=== PATIENT | male | born 1945 | race Hispanic/Latino ===

== ENCOUNTER 2017-11-16 23:47 | Inpatient (IN) | payer MEDICARE ==
[~2017-11-16 23:47] MED LIST: ACET-2247 PO; ATOR10 PO; FINA5TAB41 PO; FOLI0.8T22 PO; GLIM4TAB3 PO; LISI40TA4 PO; METF-446 PO; TAMS0.4C32 PO; TORS20TA4 PO
[2017-11-17 00:04] LABS: BASOPHILS % (AUTO) 1.1 % (0.0-5.0); EOSINOPHILS % (AUTO) 1.9 % (0.0-8.0); HEMATOCRIT 36.5 % (42-54); LYMPHOCYTES % (AUTO) 24.4 % (21.0-51.0); MEAN CORPUSCULAR HEMOGLOBIN 31.9 pg (27.0-33.0); MEAN CORPUSCULAR HGB CONC 34.4 g/dL (32.0-36.0); MEAN CORPUSCULAR VOLUME 92.9 fL (79-99); MONOCYTES % (AUTO) 6.8 % (3.0-13.0); NEUTROPHILS % (AUTO) 65.8 % (40.0-77.0); PLATELET COUNT (AUTO) 154 K/uL (130-400); RED BLOOD CELL COUNT(AUTO) 3.93 MIL/uL (4.50-6.20); RED CELL DISTRIBUTION WIDTH 14.3 % (11.0-15.5); WHITE BLOOD COUNT (AUTO) 7.2 K/uL (4.8-10.8)
[2017-11-17 00:12] LABS: CREATININE 1.6 mg/dL (0.5-1.5); POTASSIUM 4.3 mmol/L (3.5-5.1)
[2017-11-17 00:15] LABS: INR 1.01 (0.85-1.15); PARTIAL THROMBOPLASTIN TIME 23.8 SEC (26.3-35.5); PROTHROMBIN TIME 10.6 SEC (9.6-11.6)
[2017-11-17 00:26] LABS: ALBUMIN 3.7 g/dL (3.5-5.0); BILIRUBIN,TOTAL 0.2 mg/dL (0.2-1.0); TOTAL PROTEIN, SERUM 7.4 g/dL (6.0-8.3)
[2017-11-17 00:30] LABS: APPEARANCE,URINE Clear (CLEAR); BILIRUBIN,URINE Negative (NEGATIVE); COLOR,URINE Yellow (YELLOW); GLUCOSE, URINE (UA) Negative (NEGATIVE); KETONES,URINE Negative (NEGATIVE); LEUKOCYTE ESTERASE ,URINE Moderate (NEGATIVE); NITRATE,URINE Negative (NEGATIVE); OCCULT BLOOD,URINE Negative (NEGATIVE); PROTEIN,URINE Negative (NEGATIVE)
[2017-11-17 00:37] LABS: B-TYPE NATRIURETIC PEPTIDE 31 pg/mL (0-100)
[2017-11-17 00:39] LABS: BACTERIA,URINE Few /HPF (None Seen); MUCUS,URINE Many LPF (None Seen); RBC,URINE None Seen /HPF (0-1); SQUAMOUS EPITHELIAL CELL,UR Moderate /HPF (0-2)
[2017-11-17] MEDS ORDERED: CEFTRIAXONE SODIUM 1 GM ONE (05:26)
[2017-11-17] MEDS ORDERED: SODIUM CHLORIDE 0.9% 50 ML IV ONE (05:26)
[2017-11-17] MEDS: LACTATED RINGERS 1000ML 1,000 ML IV SCH ×3 (06:30→22:30)
[2017-11-17] MEDS ORDERED: GLUCAGON 1MG KIT 1 MG ML IM PRN (06:30)
[2017-11-17] MEDS ORDERED: DEXTROSE 50%-WATER 50 ML DISP.SYRIN IV PRN (06:30)
[2017-11-17] MEDS: CEFTRIAXONE SODIUM 1 GM IVP SCH (06:30)
[2017-11-17] MEDS ORDERED: ONDANSETRON HCL MDV 20ML 2 MG/ML VIAL IVP PRN (06:30)
[2017-11-17] MEDS: MEROPENEM 500 MG VIAL IVP SCH ×3 (06:45→22:58)
[2017-11-17] MEDS: INSULIN R PO SS1 SQ SCH ×4 (07:30→20:15)
[2017-11-17] MEDS ORDERED: METFORMIN HCL 500 MG TABLET PO SCH (08:00)
[2017-11-17] MEDS ORDERED: MEROPENEM 500 MG VIAL ONE (08:33)
[2017-11-17] MEDS ORDERED: LACTATED RINGERS 1000ML 1,000 ML IV ONE (08:33)
[2017-11-17] MEDS: FOLIC ACID/VITAMIN B COMP W-C 1 MG CAPSULE PO SCH (09:00)
[2017-11-17] MEDS ORDERED: GLIMEPIRIDE 2 MG TABLET PO SCH (09:00)
[2017-11-17] MEDS ORDERED: FERR325T22 PO (11:33)
[2017-11-17] MEDS ORDERED: ASPI-555 PO (11:33)
[2017-11-17] MEDS ORDERED: METO-391 PO (11:33)
[2017-11-17] MEDS ORDERED: LISI-617 PO (11:33)
[2017-11-17 11:44] VITALS: BP 160/73
[2017-11-17] MEDS ORDERED: FOLI1TAB85 PO (11:44)
[2017-11-17 11:51] LABS: BASOPHILS % (AUTO) 0.9 % (0.0-5.0); EOSINOPHILS % (AUTO) 2.1 % (0.0-8.0); HEMATOCRIT 37.9 % (42-54); LYMPHOCYTES % (AUTO) 25.1 % (21.0-51.0); MEAN CORPUSCULAR HEMOGLOBIN 30.8 pg (27.0-33.0); MEAN CORPUSCULAR HGB CONC 33.2 g/dL (32.0-36.0); MEAN CORPUSCULAR VOLUME 92.7 fL (79-99); MONOCYTES % (AUTO) 8.4 % (3.0-13.0); NEUTROPHILS % (AUTO) 63.5 % (40.0-77.0); PLATELET COUNT (AUTO) 138 K/uL (130-400); RED BLOOD CELL COUNT(AUTO) 4.09 MIL/uL (4.50-6.20); RED CELL DISTRIBUTION WIDTH 14.5 % (11.0-15.5); WHITE BLOOD COUNT (AUTO) 6.9 K/uL (4.8-10.8)
[2017-11-17 12:15] LABS: ALBUMIN 3.6 g/dL (3.5-5.0); BILIRUBIN,TOTAL 0.4 mg/dL (0.2-1.0); CREATININE 1.2 mg/dL (0.5-1.5); POTASSIUM 4.5 mmol/L (3.5-5.1); TOTAL PROTEIN, SERUM 7.3 g/dL (6.0-8.3)
[2017-11-17] MEDS: TAMSULOSIN HCL 0.4 MG CAP.ER.24H PO SCH (12:54)
[2017-11-17] MEDS: FINASTERIDE 5 MG TABLET PO SCH ×2 (12:54→20:08)
[2017-11-17] MEDS: LISINOPRIL 40 MG TABLET PO SCH (12:54)
[2017-11-17] MEDS: TORSEMIDE 20 MG TAB PO SCH (12:55)
[2017-11-17] MEDS: INSULIN HUMULIN R 100 UNIT/ML 3ML SQ SCH ×2 (16:30→20:15)
[2017-11-17 16:43] VITALS: BP 157/77
[2017-11-17 20:00] VITALS: BP 122/72
[2017-11-17] MEDS: ATORVASTATIN CALCIUM 10 MG TABLET PO SCH (20:08)
[2017-11-17] MEDS: ACETAMINOPHEN 325 MG TAB PO PRN (22:59)
[2017-11-18] VITALS: BP 128/74
[2017-11-18] MEDS: LACTATED RINGERS 1000ML 1,000 ML IV SCH ×2 (02:35→14:02)
[2017-11-18 03:40] VITALS: BP 112/65
[2017-11-18 04:52] LABS: EOSINOPHILS % (AUTO) 2.9 % (0.0-8.0); HEMATOCRIT 36.7 % (42-54); LYMPHOCYTES % (AUTO) 29.2 % (21.0-51.0); MEAN CORPUSCULAR HEMOGLOBIN 31.6 pg (27.0-33.0); MEAN CORPUSCULAR HGB CONC 34.1 g/dL (32.0-36.0); MEAN CORPUSCULAR VOLUME 92.8 fL (79-99); MONOCYTES % (AUTO) 7.8 % (3.0-13.0); NEUTROPHILS % (AUTO) 59.1 % (40.0-77.0); PLATELET COUNT (AUTO) 162 K/uL (130-400); RED BLOOD CELL COUNT(AUTO) 3.95 MIL/uL (4.50-6.20); RED CELL DISTRIBUTION WIDTH 14.5 % (11.0-15.5); WHITE BLOOD COUNT (AUTO) 7.4 K/uL (4.8-10.8)
[2017-11-18 05:01] LABS: CREATININE 1.3 mg/dL (0.5-1.5)
[2017-11-18] MEDS: MEROPENEM 500 MG VIAL IVP SCH (05:41)
[2017-11-18] MEDS: CEFTRIAXONE SODIUM 1 GM IVP SCH (05:41)
[2017-11-18] MEDS: INSULIN HUMULIN R 100 UNIT/ML 3ML SQ SCH ×4 (05:45→21:01)
[2017-11-18] MEDS: INSULIN R PO SS1 SQ SCH ×4 (05:45→21:00)
[2017-11-18 08:17] VITALS: BP 139/76
[2017-11-18] MEDS: LISINOPRIL 40 MG TABLET PO SCH (08:58)
[2017-11-18] MEDS: TORSEMIDE 20 MG TAB PO SCH (08:58)
[2017-11-18] MEDS: FINASTERIDE 5 MG TABLET PO SCH ×2 (08:58→20:57)
[2017-11-18] MEDS: FOLIC ACID/VITAMIN B COMP W-C 1 MG CAPSULE PO SCH (08:58)
[2017-11-18] MEDS: TAMSULOSIN HCL 0.4 MG CAP.ER.24H PO SCH (08:58)
[2017-11-18] MEDS: ACETAMINOPHEN 325 MG TAB PO PRN (09:08)
[2017-11-18 12:28] VITALS: BP 150/86
[2017-11-18] MEDS ORDERED: LACTULOSE 20 GM/30 ML UDCUP PO PRN (13:00)
[2017-11-18] MEDS: LACTULOSE 20 GM/30 ML UDCUP PO SCH ×2 (13:00→13:48)
[2017-11-18 17:08] VITALS: BP 147/77
[2017-11-18 20:00] VITALS: BP 132/77
[2017-11-18] MEDS: ATORVASTATIN CALCIUM 10 MG TABLET PO SCH (20:57)
[2017-11-19] VITALS: BP 125/75
[2017-11-19 04:00] VITALS: BP 120/71
[2017-11-19 04:40] LABS: BASOPHILS % (AUTO) 0.9 % (0.0-5.0); EOSINOPHILS % (AUTO) 2.1 % (0.0-8.0); LYMPHOCYTES % (AUTO) 13.9 % (21.0-51.0); MEAN CORPUSCULAR HEMOGLOBIN 31.7 pg (27.0-33.0); MEAN CORPUSCULAR HGB CONC 34.4 g/dL (32.0-36.0); MEAN CORPUSCULAR VOLUME 92.1 fL (79-99); MONOCYTES % (AUTO) 7.4 % (3.0-13.0); NEUTROPHILS % (AUTO) 75.7 % (40.0-77.0); PLATELET COUNT (AUTO) 138 K/uL (130-400); RED BLOOD CELL COUNT(AUTO) 4.13 MIL/uL (4.50-6.20); RED CELL DISTRIBUTION WIDTH 14.4 % (11.0-15.5); WHITE BLOOD COUNT (AUTO) 8.5 K/uL (4.8-10.8)
[2017-11-19 05:00] LABS: ALBUMIN 3.4 g/dL (3.5-5.0); BILIRUBIN,TOTAL 0.5 mg/dL (0.2-1.0); CREATININE 1.2 mg/dL (0.5-1.5); CRP QUANTITATIVE 4.6 mg/L (0.00-9.0)
[2017-11-19] MEDS: INSULIN HUMULIN R 100 UNIT/ML 3ML SQ SCH ×2 (06:01→11:30)
[2017-11-19] MEDS: INSULIN R PO SS1 SQ SCH ×2 (06:01→11:30)
[2017-11-19] MEDS: CEFTRIAXONE SODIUM 1 GM IVP SCH (06:11)
[2017-11-19 08:00] VITALS: BP 116/63
[2017-11-19] MEDS ORDERED: NITR100C PO (08:48)
[2017-11-19] MEDS ORDERED: ENOXAPARIN SODIUM 40 MG/0.4 ML SYRINGE SQ SCH (09:00)
[2017-11-19] MEDS: FOLIC ACID/VITAMIN B COMP W-C 1 MG CAPSULE PO SCH (09:56)
[2017-11-19] MEDS: TAMSULOSIN HCL 0.4 MG CAP.ER.24H PO SCH (09:56)
[2017-11-19] MEDS: LISINOPRIL 40 MG TABLET PO SCH (09:57)
[2017-11-19] MEDS: FINASTERIDE 5 MG TABLET PO SCH (09:57)
[2017-11-19] MEDS: TORSEMIDE 20 MG TAB PO SCH (09:57)
== END 2017-11-19 12:40 | disposition home or self-care (01) | DRG 689 ==
LOC: EDH 23:47 → EDHIP 11-17 06:10 → 3AH 11-17 10:44
PROVIDERS: ADMIT Hospitalist; ATTEND Hospitalist
DX: N39.0 Urinary tract infection, site not specified (principal); G93.41 Metabolic encephalopathy; F05 Delirium due to known physiological condition; E66.01 Morbid (severe) obesity due to excess calories; E11.65 Type 2 diabetes mellitus with hyperglycemia; I25.10 Atherosclerotic heart disease of native coronary artery without angina pectoris; E78.5 Hyperlipidemia, unspecified; T50.995A Adverse effect of other drugs, medicaments and biological substances, initial encounter; I10 Essential (primary) hypertension; N40.0 Benign prostatic hyperplasia without lower urinary tract symptoms; Z82.49 Family history of ischemic heart disease and other diseases of the circulatory system; Z83.3 Family history of diabetes mellitus; Z95.1 Presence of aortocoronary bypass graft; Z79.84 Long term (current) use of oral hypoglycemic drugs; Y92.89 Other specified places as the place of occurrence of the external cause
CPT/HCPCS: 36415; 70450; 71045; 80048; 80053; 80061; 80339; 81001; 82550; 82948; 83605; 83880; 84484; 85025; 85610; 85730; 86140; 87040; 87088; 93005; A4218; G0008; J0696; J1650; J1815; J2185; J7120; Q2038

== ENCOUNTER → 2019-03-05 | Outpatient (CLI) | payer MEDICARE ==
[~2019-03-05] MED LIST changes: -ACET-2247 PO; +ASPI-1012 PO; +FERR325T22 PO; -FOLI0.8T22 PO; -GLIM4TAB3 PO; +GLIM4TAB36 PO; +HYDR-4457 PO; +LISI-617 PO; -LISI40TA4 PO; +METOPROLOL ER PO; +RENA VITE PO; +SUPER BETA PO; +VITAD400 PO; +VITAMIN E PO
== END | disposition home or self-care (01) ==
LOC: SHCH 10:22
PROVIDERS: ATTEND Internal Medicine Cardiovascular Disease
DX: I48.0 Paroxysmal atrial fibrillation (principal); R00.2 Palpitations
CPT/HCPCS: 93306; 93356

== ENCOUNTER → 2020-05-23 | Outpatient (CLI) | payer MEDICARE ==
[~2020-05-23] MED LIST changes: -LISI-617 PO; +LISI-809 PO
== END | disposition home or self-care (01) ==
LOC: SHCH 09:41
PROVIDERS: ATTEND Internal Medicine Cardiovascular Disease
DX: I73.9 Peripheral vascular disease, unspecified (principal)
CPT/HCPCS: 93925

== ENCOUNTER → 2020-07-27 | Outpatient (CLI) | payer MEDICARE | END | disposition home or self-care (01) | LOC: SHCH 13:50 | PROVIDERS: ATTEND Internal Medicine Cardiovascular Disease | DX: I87.2 Venous insufficiency (chronic) (peripheral) (principal); I70.291 Other atherosclerosis of native arteries of extremities, right leg | CPT/HCPCS: 93931; 93970; 93971 ==

== ENCOUNTER 2021-05-05 09:43 | Emergency (ER) | payer MEDICARE ==
[~2021-05-05] VITALS: Ht 167.6 cm; Wt 108.9 kg
[~2021-05-05 09:43] MED LIST changes: -LISI-809 PO; +LISI5TAB21 PO
[2021-05-05 10:07] LABS: BASOPHILS % (AUTO) 0.9 % (0.0-5.0); EOSINOPHILS % (AUTO) 2.5 % (0.0-8.0); HEMATOCRIT 34.8 % (42-54); MEAN CORPUSCULAR HEMOGLOBIN 31.1 pg (27.0-33.0); MEAN CORPUSCULAR VOLUME 94.1 fL (79-99); MONOCYTES % (AUTO) 6.3 % (3.0-13.0); NEUTROPHILS % (AUTO) 74.8 % (40.0-77.0); PLATELET COUNT (AUTO) 124 K/uL (130-400); RED CELL DISTRIBUTION WIDTH 13.2 % (11.0-15.5); WHITE BLOOD COUNT (AUTO) 7.5 K/uL (4.8-10.8)
[2021-05-05 10:19] LABS: CREATININE 1.7 mg/dL (0.5-1.5); POTASSIUM 3.9 mmol/L (3.5-5.1)
[2021-05-05 10:33] LABS: ALBUMIN 3.4 g/dL (3.5-5.0); BILIRUBIN,TOTAL 0.4 mg/dL (0.2-1.0); TOTAL PROTEIN, SERUM 6.6 g/dL (6.0-8.3)
[2021-05-05 11:38] VITALS: BP 122/56
== END 2021-05-05 11:45 | disposition home or self-care (01) ==
LOC: EDH 09:43
DX: R42 Dizziness and giddiness (principal); R11.0 Nausea; I10 Essential (primary) hypertension; E11.9 Type 2 diabetes mellitus without complications; Z79.82 Long term (current) use of aspirin; Z79.84 Long term (current) use of oral hypoglycemic drugs; Z88.1 Allergy status to other antibiotic agents; Z88.6 Allergy status to analgesic agent
CPT/HCPCS: 36415; 71045; 80053; 82550; 83874; 84484; 85025; 93005

== ENCOUNTER → 2021-06-15 | Outpatient (CLI) | payer MEDICARE ==
[~2021-06-15] VITALS: Ht 165.1 cm; Wt 119.7 kg
[~2021-06-15] MED LIST changes: +REGADENOSON 0.4 MG/5 ML PF SYG IVP SCH
== END ==
LOC: SHCH 08:06
PROVIDERS: ATTEND Internal Medicine Cardiovascular Disease
DX: R06.09 Other forms of dyspnea (principal); I20.9 Angina pectoris, unspecified
CPT/HCPCS: 78452; 93017; 96374; A9500 ×2; J2785

== ENCOUNTER 2021-12-14 11:06 | Emergency (ER) | payer MEDICARE ==
[~2021-12-14] VITALS: Ht 152.4 cm; Wt 106.6 kg
[~2021-12-14 11:06] MED LIST changes: -REGADENOSON 0.4 MG/5 ML PF SYG IVP SCH
[2021-12-14 12:12] LABS: HEMATOCRIT 38.1 % (42-54); LYMPHOCYTES % (AUTO) 13.5 % (21.0-51.0); MEAN CORPUSCULAR HEMOGLOBIN 31.5 pg (27.0-33.0); MEAN CORPUSCULAR HGB CONC 32.8 g/dL (32.0-36.0); MONOCYTES % (AUTO) 10.3 % (3.0-13.0); NEUTROPHILS % (AUTO) 73.5 % (40.0-77.0); PLATELET COUNT (AUTO) 152 K/uL (130-400); RED BLOOD CELL COUNT(AUTO) 3.97 MIL/uL (4.50-6.20); RED CELL DISTRIBUTION WIDTH 13.5 % (11.0-15.5); WHITE BLOOD COUNT (AUTO) 8.1 K/uL (4.8-10.8)
[2021-12-14 12:16] LABS: APPEARANCE,URINE CLEAR (CLEAR); BILIRUBIN,URINE NEGATIVE (NEGATIVE); COLOR,URINE COLORLESS (YELLOW); GLUCOSE, URINE (UA) 300 mg/dL (NEGATIVE); KETONES,URINE NEGATIVE (NEGATIVE); LEUKOCYTE ESTERASE ,URINE 250 Leu/uL (NEGATIVE); NITRATE,URINE NEGATIVE (NEGATIVE); OCCULT BLOOD,URINE NEGATIVE (NEGATIVE); PROTEIN,URINE NEGATIVE (NEGATIVE); UROBILINOGEN,URINE 0.2 mg/dL (0.2-1.0)
[2021-12-14 12:25] LABS: SQUAMOUS EPITHELIAL CELL,UR RARE /HPF (0-2)
[2021-12-14 12:33] LABS: CREATININE 1.6 mg/dL (0.5-1.5); POTASSIUM 4.3 mmol/L (3.5-5.1)
[2021-12-14 12:35] LABS: INR 0.96 (0.85-1.15); PROTHROMBIN TIME 10.5 SEC (9.6-11.6)
[2021-12-14 12:36] LABS: PARTIAL THROMBOPLASTIN TIME 24.5 SEC (26.3-35.5)
[2021-12-14 12:42] LABS: TOTAL PROTEIN, SERUM 7.8 g/dL (6.0-8.3)
[2021-12-14 12:43] LABS: B-TYPE NATRIURETIC PEPTIDE 139 pg/mL (0-100)
[2021-12-14] MEDS ORDERED: CEFTRIAXONE 2GM VIAL IVP STA (14:11)
[2021-12-14] MEDS ORDERED: CEPH500B PO (14:15)
[2021-12-14 14:31] VITALS: BP 127/58
== END 2021-12-14 15:02 | disposition home or self-care (01) ==
LOC: EDH 11:06
DX: N39.0 Urinary tract infection, site not specified (principal); E11.9 Type 2 diabetes mellitus without complications; E78.00 Pure hypercholesterolemia, unspecified; I11.9 Hypertensive heart disease without heart failure; Z88.6 Allergy status to analgesic agent; Z79.82 Long term (current) use of aspirin; Z79.84 Long term (current) use of oral hypoglycemic drugs
CPT/HCPCS: 99285; 96374; 70450; 92610; 71045; 82550; 83721; 84484; 80053; 83880; 85025; 85610; 85730; 87088; 81001; 36415; 93005; J0696

== ENCOUNTER → 2023-05-26 | Outpatient (CLI) | payer MEDICARE ==
[~2023-05-26] MED LIST changes: +CEPH500B PO
== END | disposition home or self-care (01) ==
LOC: SHCH 08:17
PROVIDERS: ATTEND Internal Medicine Cardiovascular Disease
DX: I34.0 Nonrheumatic mitral (valve) insufficiency (principal); I11.9 Hypertensive heart disease without heart failure; E78.5 Hyperlipidemia, unspecified; E11.9 Type 2 diabetes mellitus without complications; Z95.2 Presence of prosthetic heart valve
CPT/HCPCS: 93306

== ENCOUNTER → 2023-10-30 | Outpatient (CLI) | payer MEDICARE | END | disposition home or self-care (01) | LOC: RAH 11:19 | PROVIDERS: ATTEND Family Medicine | DX: J40 Bronchitis, not specified as acute or chronic (principal); R09.89 Other specified symptoms and signs involving the circulatory and respiratory systems | CPT/HCPCS: 71046 ==

== ENCOUNTER → 2023-11-27 | Outpatient (CLI) | payer MEDICARE | END | disposition home or self-care (01) | LOC: RAH 12:01 | PROVIDERS: ATTEND Family Medicine | DX: M47.817 Spondylosis without myelopathy or radiculopathy, lumbosacral region (principal); M43.17 Spondylolisthesis, lumbosacral region | CPT/HCPCS: 72100 ==

== ENCOUNTER → 2024-05-10 | Outpatient (CLI) | payer OTHER | END | disposition home or self-care (01) | LOC: SHCH 15:04 | PROVIDERS: ATTEND Internal Medicine Cardiovascular Disease | DX: I65.23 Occlusion and stenosis of bilateral carotid arteries (principal); R09.89 Other specified symptoms and signs involving the circulatory and respiratory systems | CPT/HCPCS: 93880 ==

== ENCOUNTER → 2024-11-25 | Outpatient (CLI) | payer OTHER ==
[2024-11-25] MEDS: REGADENOSON 0.4 MG/5 ML PF SYG IVP ONE (13:05)
--- NOTE | 2024-11-25 16:26 | HMCSR ---
APPROVED REPORT Height: 5 ft 6in Weight: 262 lbs TEST INDICATIONS Shortness of Breath The imaging protocol used to acquire images was Rest Tc-99m/stress Tc-99m 1 day Consent: The procedure was explained and understood by the patient. Informerd consent was witnessed Erwin Hyatt RN First, low dose rest was performed then high dose stress. RESTING DATA: The resting ekg shows: NSR Rest SPECT myocardial perfusion imaging was performed in supine position minutes following the intra venous injection of 11 mCi of Tc-99 Sestamibi. Time of rest injection: 11:29: Date: 11/25/2024 PHARMACOLOGIC STRESS: Pharmacologic stress test was performed by injecting regadenoson 0.4 mg IV push followed by the intra venous injection of 30 mCi of Tc-99 Sestamibi. Time of stress injection: 12:57: Date: 11/25/2024 Heart Rate at time of stress injection: 64 bpm. Gated Stress SPECT was performed 60 minutes after stress injection. The images were gated to evaluate regional wall motion and calculate left ventricular ejection fracti on. STRESS DETAILS Reason for Termination: Infusion complete Stress Symptoms: Throat Discomfort Max HR Achieved: 86 bpm % of APMHR Achieved: 72 Max Blood Pressure: 151/76 mmHg Stress ECG: NSR Study quality was good. Lung uptake was Normal. Artifact: increased GI uptake LEFT VENTRICLE Size: The left ventricular size is normal. Systolic Function:The left ventricular systolic function is normal. Wall Motion: No regional wall motion abnormalities noted. The left ventricular ejection fraction was calculated to be 67%.TID = 1.10. LV PERFUSION The rest and stress images show normal perfusion. IMPRESSION Normal pharmacologic nuclear stress test. Global LV Function: Normal Stress ECG Summary: Nondiagnostic LV Perfusion Summary: Normal Conclusion Normal pharmacologic nuclear stress test. Global LV Function: Normal Stress ECG Summary: Nondiagnostic LV Perfusion Summary: Normal Low risk scan
== END | disposition home or self-care (01) ==
LOC: RAH 10:46
PROVIDERS: ATTEND Internal Medicine Cardiovascular Disease
DX: R06.02 Shortness of breath (principal); Z95.2 Presence of prosthetic heart valve
CPT/HCPCS: 78452; 93017; J2785; A9500 ×2